=== PATIENT | female | born 1970 | race Caucasian/White ===

== ENCOUNTER 2017-11-25 09:19 | Emergency (ER) | payer MEDICAID ==
[~2017-11-25] VITALS: Ht 172.7 cm; Wt 65.5 kg
[2017-11-25 09:19] VITALS: BP 116/76
[~2017-11-25 09:19] MED LIST: CITA10TA8 PO; CITA20TA9 PO; CLON1TAB PO; LEVO125T5 PO; TAMO10TA PO; TRAM50TA2 PO
[2017-11-25] MEDS ORDERED: DIPH,PERTUSS(ACELL),TET VAC/PF 0.5 ML IM-VACC ONE (10:00)
== END 2017-11-25 10:24 | disposition left against medical advice (07) ==
LOC: ED 10:18
DX: S00.33XA Contusion of nose, initial encounter (principal); S00.83XA Contusion of other part of head, initial encounter; S00.531A Contusion of lip, initial encounter; S00.12XA Contusion of left eyelid and periocular area, initial encounter; S60.222A Contusion of left hand, initial encounter; S60.221A Contusion of right hand, initial encounter; X58.XXXA Exposure to other specified factors, initial encounter; Y93.89 Activity, other specified; Y92.89 Other specified places as the place of occurrence of the external cause; Y99.9 Unspecified external cause status
CPT/HCPCS: 99281; 99283

== ENCOUNTER 2018-04-20 00:53 | Emergency (ER) | payer SELFPAY ==
[~2018-04-20] VITALS: Ht 170.2 cm; Wt 73.0 kg
[2018-04-20 01:40] LABS: BASOPHILS # (AUTO) 0.04 x10^3/uL (0-0.1); BASOPHILS % (AUTO) 1 % (0-1); EOSINOPHILS # (AUTO) 0.26 x10^3/uL (0-0.4); EOSINOPHILS % (AUTO) 4 % (1-7); LYMPHOCYTES # (AUTO) 2.47 x10^3/uL (1-3.4); LYMPHOCYTES % (AUTO) 37 % (22-44); MD NO; MEAN CORPUSCULAR HEMOGLOBIN 29.5 pg (27.0-34.8); MEAN CORPUSCULAR HGB CONC 33.7 g/dL (32.4-35.8); MEAN CORPUSCULAR VOLUME 87.5 fL (80-100); MEAN PLATELET VOLUME 7.9 fL (7.4-10.4); MONOCYTES # (AUTO) 0.41 x10^3/uL (0.2-0.8); MONOCYTES % (AUTO) 6 % (2-9); NEUTROPHILS # (AUTO) 3.55 x10^3/uL (1.8-6.8); NEUTROPHILS % (AUTO) 53 % (42-75); PLATELET COUNT 249 x10^3/uL (130-400); RED BLOOD COUNT 3.95 x10^6/uL (3.82-5.3); RED CELL DISTRIBUTION WIDTH 14.2 % (9.6-15.2)
[2018-04-20 01:51] LABS: ALBUMIN 3.2 g/dL (3.4-5.0); ANION GAP 8 mmol/L (5-15); CHLORIDE 111 mmol/L (98-107); SALICYLATE LEVEL 2.7 mg/dL (2.8-20.0)
[2018-04-20 01:52] LABS: ACETAMINOPHEN < 2 mcg/mL (10-30)
[2018-04-20] MEDS ORDERED: ZIPRASIDONE 20 MG INJ IM ONE ×2 (02:17→02:30)
[2018-04-20 02:23] VITALS: BP 109/76
== END 2018-04-20 04:13 | disposition home or self-care (01) ==
LOC: ED 02:03
DX: F10.220 Alcohol dependence with intoxication, uncomplicated (principal); G31.2 Degeneration of nervous system due to alcohol
CPT/HCPCS: 36415; 70450; 80048; 80307; 80329; 82040; 85025; 96372; 99285; J3486; G0480

== ENCOUNTER 2018-07-04 11:20 | Emergency (ER) | payer MEDICAID ==
[~2018-07-04] VITALS: Ht 170.2 cm; Wt 74.0 kg
[2018-07-04 11:24] VITALS: BP 107/62
[2018-07-04] MEDS ORDERED: HYDR25CA PO (11:41)
[2018-07-04] MEDS ORDERED: OXYC-306 PO (11:41)
[2018-07-04] MEDS ORDERED: ERGO2000 PO (11:41)
[2018-07-04] MEDS ORDERED: ONDANSETRON ODT 4 MG ONE (11:57)
[2018-07-04] MEDS ORDERED: ONDANSETRON ODT 4 MG PO ONE (12:00)
[2018-07-04 12:09] LABS: BASOPHILS # (AUTO) 0.02 x10^3/uL (0-0.1); BASOPHILS % (AUTO) 0 % (0-1); EOSINOPHILS # (AUTO) 0.14 x10^3/uL (0-0.4); EOSINOPHILS % (AUTO) 2 % (1-7); LYMPHOCYTES # (AUTO) 2.71 x10^3/uL (1-3.4); LYMPHOCYTES % (AUTO) 29 % (22-44); MD NO; MEAN CORPUSCULAR HEMOGLOBIN 28.7 pg (27.0-34.8); MEAN CORPUSCULAR HGB CONC 33.5 g/dL (32.4-35.8); MEAN CORPUSCULAR VOLUME 85.7 fL (80-100); MEAN PLATELET VOLUME 8.3 fL (7.4-10.4); MONOCYTES # (AUTO) 0.57 x10^3/uL (0.2-0.8); MONOCYTES % (AUTO) 6 % (2-9); NEUTROPHILS # (AUTO) 5.99 x10^3/uL (1.8-6.8); NEUTROPHILS % (AUTO) 64 % (42-75); PLATELET COUNT 290 x10^3/uL (130-400); RED BLOOD COUNT 4.87 x10^6/uL (3.82-5.3); RED CELL DISTRIBUTION WIDTH 14.6 % (9.6-15.2)
[2018-07-04 12:20] LABS: ANION GAP 5 mmol/L (5-15); CALCIUM 8.7 mg/dL (8.5-10.1); CHLORIDE 107 mmol/L (98-107)
== END 2018-07-04 12:19 | disposition left against medical advice (07) ==
LOC: ED 12:00
DX: L02.01 Cutaneous abscess of face (principal); F17.200 Nicotine dependence, unspecified, uncomplicated; F12.10 Cannabis abuse, uncomplicated
CPT/HCPCS: 36415; 80048; 85025; 99284; Q0162

== ENCOUNTER 2019-04-04 15:53 | Emergency (ER) | payer MEDICAID ==
[~2019-04-04] VITALS: Ht 170.2 cm; Wt 70.0 kg
[~2019-04-04 15:53] MED LIST changes: +ERGO2000 PO; +HYDR25CA PO; +OXYC-306 PO
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
[2019-04-04] MEDS ORDERED: MORPHINE SULFATE 4 MG/ML, 1ML ONE (16:57)
[2019-04-04] MEDS ORDERED: SODIUM CHLORIDE FLUSH 10ML SYR IVF ONE (17:00)
[2019-04-04] MEDS ORDERED: MORPHINE SULFATE 4 MG/ML, 1ML IVPush ONE (17:00)
--- NOTE | 2019-04-04 17:22 | NUR ---
PATIENT MEDICATED AND WENT TO RADIOLOGY. GOT HER TO BATHROOM WITH NO COMPLICATIONS.
--- NOTE | 2019-04-04 17:58 | NUR ---
pain imporoved to a 5. family at bedside
--- NOTE | 2019-04-04 18:36 | NUR ---
PATIENT AWAITING ER WORKUP AND ORDERS. IN BED, PAIN IMPROVED
[2019-04-04 19:00] VITALS: BP 123/78
--- NOTE | 2019-04-04 19:02 | NUR ---
PATIENT DISCHARGE INSTRUCTIONS GIVEN TO PATIENT REGARDING FOLLOW UP CARE. SHOWS UNDERSTANDING.
== END 2019-04-04 19:13 | disposition home or self-care (01) ==
LOC: ED 19:00
DX: S02.40CA Maxillary fracture, right side, initial encounter for closed fracture (principal); R51 Headache; F32.9 Major depressive disorder, single episode, unspecified; F17.200 Nicotine dependence, unspecified, uncomplicated; Z85.3 Personal history of malignant neoplasm of breast; V19.9XXA Pedal cyclist (driver) (passenger) injured in unspecified traffic accident, initial encounter; Y93.89 Activity, other specified; Y92.89 Other specified places as the place of occurrence of the external cause; Y99.8 Other external cause status
CPT/HCPCS: 70486; 73030; 96374; 99284; J2270